=== PATIENT | male | born 1965 | race Caucasian/White ===

== ENCOUNTER 2017-01-21 03:59 | Emergency (ER) | payer OTHER ==
[~2017-01-21] VITALS: Ht 180.3 cm; Wt 81.6 kg
[~2017-01-21 03:59] MED LIST: POLYTRIM O200 GTT/BO OT; VIAGRA25 M1 PO
--- NOTE | 2017-01-21 04:58 | ED NECK/BACK PAIN COMPLAINT ---
History of Present Illness General Chief Complaint: General Adult Stated Complaint: PAIN IN BUTTOCK Source: patient, old records Exam Limitations: no limitations Vital Signs & Intake/Output Vital Signs & Intake/Output Vital Signs Date Time Temp Pulse Resp B/P B/P Pulse O2 O2 Flow FiO2 Mean Ox Delivery Rate 01/21 0550 96.0 58 16 142/84 97 Room Air 01/21 0417 97.0 72 16 163/93 99 Room Air Room Air Allergies Coded Allergies: MDX - PCN (penicillin) (PCN (PENICILLIN)) (RASH 02/25/14) Reconcile Medications Atenolol 25 MG TABLET 1 TAB PO DAILY HTN (Reported) Baclofen 10 MG TABLET 1-2 TAB PO TID PRN muscle strain Ibuprofen 800 MG TABLET 1 TAB PO Q6PRN PRN pain Polytrim (Polytrim Eye Drops) 200 GTT/BOT GTT 1 DROP OT 4 TIMES/DAY EYE TRAUMA Sildenafil Citrate (Viagra) 25 MG TAB 1 TAB PO AD IMPOTENCE (Reported) 1 hour before sexual activity Tramadol HCl (Ultram) 50 MG TABLET 1-2 TAB PO Q6PRN PRN severe pain Triage Note: 51yo MALE TO RM 1 FROM TRIAGE W/CO L BUTTOCK PAIN X 1 MONTH. DENIES ANY INJURY, TRAUMA OR FALL. Triage Nurses Notes Reviewed? yes Onset: 1 month Duration: week(s):, changing over time, continues in ED Timing: recent history Quality/Severity: moderate, dullness Location: L buttocks Radiation: upper legs, lower legs Context: prolonged sitting Method of Injury: unknown Loss of Consciousness: no loss of consciousness Modifying Factors: other (sitting) Associated Symptoms: lower back pain HPI: 1 month prior to admission patient complains of left buttocks pain described as sharp radiating upper and lower leg intermittent mild to moderate severity occurring especially after prolonged car ride riding quad or lawnmower. He denies fever chills nausea vomiting diarrhea abdominal pain chest pain shortness breath headache dysuria rash bleeding change in motor sensory function change in bowel bladder habit. Past History Travel History Traveled to [place] past 21 day No Medical History Any Pertinent Medical History? see below for history Neurological: migraine Cardiovascular: hypertension Psychiatric: depression Surgical History Surgical History: non-contributory Psychosocial History What is your primary language Guinean Tobacco Use: Never used Family History Hx Contributory? No Review of Systems Review of Systems Constitutional: Reports: no symptoms. Eyes: Reports: no symptoms. Ears, Nose, Throat, Mouth: Reports: no symptoms. Respiratory: Reports: no symptoms. Cardiovascular: Reports: no symptoms. Gastrointestinal/Abdominal: Reports: no symptoms. Musculoskeletal: Reports: see HPI, joint pain, muscle pain. Skin: Reports: no symptoms. Neurological/Psychological: Reports: no symptoms. All Other Systems: Reviewed and Negative Physical Exam Physical Exam General Appearance: well developed/nourished, alert, awake, anxious, mild distress, thin Head: atraumatic, normal appearance Eyes: Bilateral: PERRL, EOMI. Ears, Nose, Throat, Mouth: hearing grossly normal Neck: normal inspection, supple, full range of motion, normal alignment Respiratory: normal breath sounds, chest non-tender, no respiratory distress, quiet respiration, lungs clear Cardiovascular: regular rate/rhythm, normal peripheral pulses, norml femoral pulses equa Peripheral Pulses: 4+ carotid (R), 4+ carotid (L) Gastrointestinal: normal bowel sounds, soft, non-tender, no organomegaly Back: normal inspection, normal range of motion, no vertebral tenderness Extremities: normal range of motion, deep tenderness left medial buttock Straight Leg Raising: Right: Negative. Left: Negative. Sensory: Medial Le: L4R, L4L. Top of Foot: 2: L5R, L5L. Sole of Foot: 2: SIR, KINGSLEY. Motor: Deficit L4 Right: No Deficit L4 Left: No Deficit L5 Right: No Deficit L5 Left: No Deficit S1 Right: No Deficit S1 Right: No DTR: Deficit L4 Left: No Deficit L4 Right: No Deficit S1 Left: No Deficit S1 Right: No Patellar: 3: L4 Right, L4 Left. Achilles: 3: S1 Right, S1 Left. 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 Discussed w/RAD: Radiology Read. Radiology Impression: no acute abnormality, no fracture, no dislocation Departure Departure Time of Disposition: 515 Disposition: HOME OR SELF CARE Condition: Stable Clinical Impression Primary Impression: Piriformis syndrome of left side Referrals: BALAJI GREER,GLO Fitch (PCP/Family) Departure Forms: Customer Survey General Discharge Information Prescriptions: Current Visit Scripts Ibuprofen 1 TAB PO Q6PRN PRN pain #50 TAB Baclofen 1-2 TAB PO TID PRN muscle strain #30 TAB Tramadol HCl (Ultram) 1-2 TAB PO Q6PRN PRN severe pain #30 TAB
[2017-01-21] MEDS ORDERED: ATENOLOL25 M1 PO (05:09)
[2017-01-21] MEDS ORDERED: IBUPROFEN800 M1 PO (05:42)
[2017-01-21] MEDS ORDERED: BACLOFEN10 M1 PO (05:42)
[2017-01-21] MEDS ORDERED: ULTRAM50 M1 PO (05:42)
[2017-01-21 05:50] VITALS: BP 142/84
--- NOTE | 2017-01-21 06:07 | RADIOLOGY REPORT ---
EXAMINATION: RADIOGRAPH OF THE PELVIS AND LEFT HIP. CLINICAL INFORMATION: Left buttock pain. COMPARISON: No relevant prior imaging. TECHNIQUE: An AP view of pelvis was obtained. 2 additional views of the left hip were obtained. FINDINGS: The pelvic ring is intact. Sacroiliac joints are symmetric. There is no acute fracture. Both hips are intact and joint spaces are maintained. There is no dislocation. Visualized bowel gas pattern is unremarkable. Soft tissues are normal. IMPRESSION: Normal radiographs of the pelvis and left hip.
== END 2017-01-21 06:42 ==
LOC: ERH 03:59
DX: G57.02 Lesion of sciatic nerve, left lower limb (principal)

== ENCOUNTER 2018-01-30 15:27 | Emergency (ER) | payer OTHER ==
[~2018-01-30] VITALS: Ht 180.3 cm; Wt 81.6 kg
[~2018-01-30 15:27] MED LIST changes: +AMLODIPINE BESYL5 M1 PO; +ATENOLOL25 M1 PO; +BACLOFEN10 M1 PO; +EPIPEN 2-P0.3 MG/0.3 IM; +IBUPROFEN800 M1 PO; +ULTRAM50 M1 PO
--- NOTE | 2018-01-30 15:41 | ED CARDIAC/CP/PALPITATIONS ---
History of Present Illness General Chief Complaint: Chest Pain Stated Complaint: CHEST PAIN Source: patient, old records Exam Limitations: no limitations Vital Signs & Intake/Output Vital Signs & Intake/Output Vital Signs Date Time Temp Pulse Resp B/P B/P Pulse O2 O2 Flow FiO2 Mean Ox Delivery Rate 01/31 2020 98.4 88 18 150/86 97 Room Air Room Air 01/30 1909 98.2 91 18 151/88 97 Room Air Room Air 01/30 1730 98.1 95 18 156/90 96 Room Air 01/30 1600 96 166/88 01/30 1534 98.4 99 20 200/100 100 Room Air Allergies Coded Allergies: bee venom protein (honey bee) (Severe, SWELLING AT SITE OF STING 07/17/17) Penicillins (RASH 07/17/17) Reconcile Medications Amlodipine Besylate 5 MG TABLET 1 TAB PO DAILY BP (Reported) Epinephrine (Epipen 2-Jayce) 0.3 MG/0.3 ML AUTO.INJCT 1 INJ IM X1 PRN SEVERE ALLERGIC REACTION Triage Note: PT TO ED C/O SUBSTERNAL ON AND OFF CHEST PAIN X 3 DAYS. PAIN DOES NOT RADIATE. DENIES N/V/D. "I FEEL MY HEARTBEAT IN MY NECK". BP 200/100 IN TRIAGE. "I JUST DON'T FEEL RIGHT". Triage Nurses Notes Reviewed? yes Onset: Abrupt Duration: week(s): (3), intermittent Timing: recent history Quality/Severity: moderate (pressure) Location: central Radiation: neck Activities at Onset: emotional stress Prior Chest Pain/Card Workup: similar sx 1 yr ago- had neg cardio workup Nitro Today/Relief: no nitro taken today Aspirin Today: no aspirin today Associated Symptoms: denies HPI: 52-year-old male history of hypertension on amlodipine nonsmoker presents to the ER complaining of 3 day history of intermittent chest pain radiating into his neck. Patient states she's been under significant stress recently secondary to his mother being ill area describes the pain as a pressure sensation. No back or arm pain last episode of pain was around 9:30 this morning and last for a few minutes and resolves on its own. He took ibuprofen without any relief however. He also reports palpitations. No shortness of breath pain with inspiration nausea vomiting diaphoresis. Family history significant in that his brother had a heart attack at the age of 50. 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 No recent change in his amlodipine dose he denies any complaints at this time. (Eugene Angulo) Past History Travel History Traveled to [place] past 21 day No Medical History Any Pertinent Medical History? see below for history Neurological: migraine Cardiovascular: hypertension Psychiatric: depression Surgical History Surgical History: non-contributory Psychosocial History What is your primary language Mongolian Tobacco Use: Never used ETOH Use: heavy use Illicit Drug Use: denies illicit drug use Family History Hx Contributory? No (Eugene Angulo) Review of Systems Review of Systems Constitutional: Reports: see HPI. Comments Review of systems: See HPI, All other systems negative. Constitutional, no chills no fever, HEENT: no sore throat no congestion Cardiovascular: chest pain Skin: no rashes, no change in skin Respiratory: No dyspnea no cough no sputum GI: No nausea no vomiting, no diarrhea, no bloating/constipation Muscle skeletal: No joint pain, no back pain, no neck pain, Neurologic: , no headache Psych: stress Heme/endocrine: No bruising Immunology: No lymphadenopathy (Eugene Angulo) Physical Exam Physical Exam General Appearance: well developed/nourished, alert, awake Cardiovascular: regular rate/rhythm Comments: Well-developed well-nourished person in no acute distress HEENT: Normal EENT exam; PERRL, EOMI, HEAD is atraumatic. moist mucous membranes. Neck: Supple, normal range of motion Back: Full range of motion Cardiovascular: Regular rate and rhythms no murmurs rubs Respiratory: Chest nontender.There were no bony deformities, no asymmetry. No respiratory distress. Patient speaking in full complete sentences. Breath sounds clear to auscultation bilaterally: NO W/R/R Abdomen: Soft, nontender Extremity: No edema, full range of motion of extremities, Neuro: Alert oriented x3, motor sensory normal. There were no obvious focal neurologic abnormalities. Skin: No appreciable rash on exposed skin, skin is warm and dry. Psych: Mood and affect is normal, memory and judgment is normal. Core Measures ACS in differential dx? Yes CVA/TIA Diagnosis No Sepsis Present: No Sepsis Focused Exam Completed? No (Eugene Angulo) Progress Differential Diagnosis: AMI, aortic dissection, atrial fibrillation, musculoskeletal pain, pericarditis, pneumonia, pulmonary embolism, unstable angina Plan of Care: Orders Procedure Date/time Status TROPONIN LEVEL 01/30 1900 Complete EKG 01/30 1900 Active Add-on Test (ER Only) 01/30 1617 Active D-DIMER 01/30 1608 Complete Telemetry/Chimney Builder Helper 01/30 1556 Active TROPONIN LEVEL 01/30 1547 Complete PROTHROMBIN TIME 01/30 1547 Complete COMPREHENSIVE METABOLIC PANEL 01/30 1547 Complete CBC WITHOUT DIFFERENTIAL 01/30 1547 Complete EKG 01/30 1528 Active Laboratory Tests 01/30/18 1904: Troponin I < 0.01 01/30/18 1608: Anion Gap 12, Estimated GFR > 60, BUN/Creatinine Ratio 17.1, Glucose 131 H, Calcium 9.8, Total Bilirubin 0.7, AST 26, ALT 33, Alkaline Phosphatase 77, Troponin I < 0.01, Total Protein 7.1, Albumin 4.8, Globulin 2.3, Albumin/ Globulin Ratio 2.1, PT 12.0, INR 1.10, D-Dimer High Sensitivty < 200, CBC w Diff NO MAN DIFF REQ, RBC 4.76, MCV 93.9, MCH 31.4 H, MCHC 33.4, RDW 13.8, MPV 9.7, Gran % 76.3 H, Lymphocytes % 17.6 L, Monocytes % 5.3, Eosinophils % 0.5, Basophils % 0.3, Absolute Granulocytes 4.2, Absolute Lymphocytes 1.0 L, Absolute Monocytes 0.3, Absolute Eosinophils 0, Absolute Basophils 0 Patient denies any complaints at this time labs old records reviewed x-ray ordered. Case discussed with Dr. Pugh agrees with plan I discussed with the patient need for repeat troponin he remains asymptomatic at this time 1800 pt continues to rest in nad, denies pain 0 labs and ekg sent. 01/30/2018 8:16:51 PM discussed with the patient is repeat labs case discussed with Dr. Reynoso agrees with plan. Patient resting in no acute distress I discussed with him need for close follow up with his mill tender second operator tomorrow, return precautions were discussed at length I discussed with him need to continue following up with his primary care and cardiology regarding his elevated blood pressures. Return precautions discussed at length and feel comfortable plan-I answered all of their questions Diagnostic Imaging: Viewed by Me: Radiology Read. Discussed w/RAD: Radiology Read. Radiology Impression: PATIENT: ATUL SAWYER PRESENT AGE: 52 PATIENT ACCOUNT NO: [id number] : 63 LOCATION: [facility] ORDERING PHYSICIAN: Eugene CAMP SERVICE DATE: 01/30/18 EXAM TYPE: RAD - XRY- PORTABLE CHEST XRAY EXAMINATION: XR PORTABLE CHEST CLINICAL INFORMATION: Chest pain. COMPARISON: Chest radiograph 02/25/2014. TECHNIQUE: Portable frontal view of the chest was obtained. FINDINGS: Lungs are clear and well expanded. No focal consolidative disease, pleural effusion, or pneumothorax. The cardiac silhouette and upper mediastinal contours are normal. No acute osseous finding. IMPRESSION: Unremarkable chest radiograph. No consolidative disease or effusion. DICTATED BY : Pato Grove MD DATE/TIME DICTATED:01/30/181725 BASKET MACHINE OPERATOR: EVERARDO DATE/TIME TRANSCRIBED:01/30/181725 CONFIDENTIAL, DO NOT COPY WITHOUT APPROPRIATE AUTHORIZATION. <Electronically signed in Other Vendor System> SIGNED BY: Pato Grove MD 01/30/181732 Initial ED EKG: normal sinus rhythm, RBBB Prior EKG: changed Repeat EKG: unchanged Rhythm Strip: normal sinus rhythm (Eugene Angulo) Departure Departure Time of Disposition: 2013 Disposition: HOME OR SELF CARE Condition: Stable Clinical Impression Primary Impression: Chest pain Referrals: Olga Hu (PCP/Family) Additional Instructions: Follow-up with your mill tender second operator Dr. Zhang tomorrow. As discussed purchase a home blood pressure cuff and check her pressures as discussed if they remain elevated or you have continued symptoms return to the ER. Return anytime sooner with any concerns. Departure Forms: Customer Survey General Discharge Information (Eugene Angulo) PA/SOLUTIONS CONSULTANT Co-Sign Statement Statement: ED Attending supervision documentation- [X] I saw and evaluated the patient. I have also reviewed all the pertinent lab results and diagnostic results. I agree with the findings and the plan of care as documented in the PA's/SOLUTIONS CONSULTANT's documentation. [X]X I have reviewed the ED Record and agree with the PA's/SOLUTIONS CONSULTANT's documentation. [] Additions or exceptions (if any) to the PAs/SOLUTIONS CONSULTANT's note and plan are summarized below: [] (Angeles GREER,Yusuf.) Critical Care Note Critical Care Note Critical Care Time: non-applicable (Eugene Angulo)
[2018-01-30 16:19] LABS: ABSOLUTE BASOPHIL COUNT 0 /CUMM (0.0-0.2); ABSOLUTE EOSINOPHIL COUNT 0 /CUMM (0.0-0.7); ABSOLUTE GRANULOCYTE CT 4.2 /CUMM (1.4-6.5); ABSOLUTE MONOCYTE COUNT 0.3 /CUMM (0.10-0.60); BASOPHIL % 0.3 % (0.0-2.0); EOSINOPHIL % 0.5 % (0-5); GRANULOCYTE % 76.3 % (42.2-75.2); HEMATOCRIT 44.7 % (42-52); MEAN CORPUSCULAR HGB 31.4 PG (27.0-31.0); MEAN CORPUSCULAR HGB CONC 33.4 G/DL (33.0-37.0); MEAN CORPUSCULAR VOLUME 93.9 FL (80.0-94.0); MEAN PLATELET VOLUME 9.7 FL (7.4-10.4); PLATELET COUNT 134 /CUMM (130-400); RBC DISTRIBUTION WIDTH 13.8 % (11.5-14.5); RED BLOOD CELL CT 4.76 /CUMM (4.70-6.10); WHITE BLOOD CELL COUNT 5.5 /CUMM (4.8-10.8)
--- NOTE | 2018-01-30 17:33 | RADIOLOGY REPORT ---
EXAMINATION: XR PORTABLE CHEST CLINICAL INFORMATION: Chest pain. COMPARISON: Chest radiograph 02/25/2014. TECHNIQUE: Portable frontal view of the chest was obtained. FINDINGS: Lungs are clear and well expanded. No focal consolidative disease, pleural effusion, or pneumothorax. The cardiac silhouette and upper mediastinal contours are normal. No acute osseous finding. IMPRESSION: Unremarkable chest radiograph. No consolidative disease or effusion.
[2018-01-30 20:20] VITALS: BP 150/86
== END 2018-01-30 20:21 ==
LOC: ERH 15:27
PROVIDERS: Physician Assistant Medical
DX: R07.89 Other chest pain (principal)
CPT/HCPCS: 71045; 93005; 93010

== ENCOUNTER 2018-04-05 08:42 | Emergency (ER) | payer OTHER ==
[2018-04-05 09:47] LABS: ABSOLUTE BASOPHIL COUNT 0 /CUMM (0.0-0.2); ABSOLUTE EOSINOPHIL COUNT 0 /CUMM (0.0-0.7); ABSOLUTE GRANULOCYTE CT 2.2 /CUMM (1.4-6.5); ABSOLUTE LYMPH COUNT 1.1 /CUMM (1.2-3.4); ABSOLUTE MONOCYTE COUNT 0.3 /CUMM (0.10-0.60); BASOPHIL % 0.3 % (0.0-2.0); EOSINOPHIL % 0.9 % (0-5); GRANULOCYTE % 60.2 % (42.2-75.2); HEMATOCRIT 46.3 % (42-52); MEAN CORPUSCULAR HGB 31.4 PG (27.0-31.0); MEAN CORPUSCULAR HGB CONC 33.5 G/DL (33.0-37.0); MEAN CORPUSCULAR VOLUME 93.8 FL (80.0-94.0); MEAN PLATELET VOLUME 9.5 FL (7.4-10.4); PLATELET COUNT 139 /CUMM (130-400); RBC DISTRIBUTION WIDTH 13.5 % (11.5-14.5); RED BLOOD CELL CT 4.94 /CUMM (4.70-6.10); WHITE BLOOD CELL COUNT 3.7 /CUMM (4.8-10.8)
--- NOTE | 2018-04-05 10:24 | ED GI/GU/ABDOMINAL COMPLAINT ---
History of Present Illness General Chief Complaint: Low Back Pain/Injury Stated Complaint: LOWER BACK PAIN X1 WEEK Source: patient Exam Limitations: no limitations Vital Signs & Intake/Output Vital Signs & Intake/Output Vital Signs Date Time Temp Pulse Resp B/P B/P Pulse O2 O2 Flow FiO2 Mean Ox Delivery Rate 04/05 1300 97.6 89 18 145/88 97 Room Air Room Air 04/05 0851 97.0 98 20 147/96 96 Allergies Coded Allergies: bee venom protein (honey bee) (Severe, SWELLING AT SITE OF STING 07/17/17) Penicillins (RASH 07/17/17) Reconcile Medications Amlodipine Besylate 5 MG TABLET 1 TAB PO DAILY BP (Reported) Epinephrine (Epipen 2-Jayce) 0.3 MG/0.3 ML AUTO.INJCT 1 INJ IM X1 PRN SEVERE ALLERGIC REACTION Ibuprofen 800 MG TABLET 1 TAB PO TID PRN pain Triage Note: PER PT BACK PAIN LOWER LEFT X 1 WEEK SAW PMD YESTERDAY TOLD TO COME TO ED IF WORSE. OCCAS WHOLE LOWER ABD HURTS D/T BACK PAIN PER PT DENIES URINARY CO PAIN 05/12 UNKNOWN INJURY Triage Nurses Notes Reviewed? yes Onset: Gradual Duration: week(s): (1), constant, continues in ED Timing: single episode today Quality/Severity: fullness, moderate, sharpness Severity Numbers: 8 Location: left flank, left lower quadrant, LOWER BACK Radiation: no radiation Activities at Onset: none Prior Abdominal Problems: none Past Sexual History: Unobtainable at this time No Modifying Factors: none Modifying Factors: Worsens With: movement, palpation. Associated Symptoms: abdominal pain, lower back pain HPI: 52 YEAR OLD MALE HX OF HTN DEPRESSION, PRESENTS FOR EVAL OF LOWER BACK AND PAIN ABDOMINAL PAIN. PAIN STARTED ABOUT 1 WEEK AGO AND HAS BEEN PERSISTENT. IT IS ASSOICATED WITH LOWER ABDOMINAL PAIN IN THE LLQ AND SUPRAPUBIC AREA. THE ABDOMINAL PAIN IS INTERMITTENT. THE PAIN IS WORSE WITH MOVEMENT OR PALPATION. NO TRAUMA OR TRIGGERING EVENT. REPROTS SOME NAUSEA AND DECREASED APPETITIE. NO VOMITING OR DIARRHEA. NO NUMBNESS, FEVER, BOWL/BLADDER DYSFUNCTION. HE HAS BEEN TAKING TYLENOL WITHOUT IMPROVEMENT. (Haris Adames) Past History Travel History Traveled to [place] past 21 day No Medical History Any Pertinent Medical History? see below for history Neurological: migraine EENT: NONE Cardiovascular: hypertension Respiratory: NONE Gastrointestinal: NONE Hepatic: NONE Renal: NONE Musculoskeletal: NONE Psychiatric: depression Endocrine: NONE Surgical History Surgical History: non-contributory Psychosocial History What is your primary language Sierra Leonean Tobacco Use: Never used Family History Hx Contributory? No (Haris Adames) Review of Systems Review of Systems Constitutional: Reports: no symptoms. EENTM: Reports: no symptoms. Respiratory: Reports: no symptoms. Cardiovascular: Reports: no symptoms. GI: Reports: see HPI, abdominal pain, nausea. Genitourinary: Reports: no symptoms. Musculoskeletal: Reports: see HPI, back pain. Skin: Reports: no symptoms. Neurological/Psychological: Reports: no symptoms. Hematologic/Endocrine: Reports: no symptoms. Immunologic/Allergic: Reports: no symptoms. All Other Systems: Reviewed and Negative (Haris Adames) Physical Exam Physical Exam General Appearance: well developed/nourished, no apparent distress, alert, awake Head: atraumatic, normal appearance Eyes: Bilateral: normal appearance, EOMI. Ears, Nose, Throat, Mouth: hearing grossly normal, moist mucous membrane Neck: normal inspection, supple, full range of motion Respiratory: normal breath sounds, chest non-tender, no respiratory distress, lungs clear Cardiovascular: regular rate/rhythm, normal peripheral pulses Peripheral Pulses: 2+ radial (R), 2+ radial (L) Gastrointestinal: normal bowel sounds, soft, no organomegaly, tenderness (llq, left flank, suprapubic ) Back: normal inspection, normal range of motion, left lower back pain Extremities: normal range of motion Neurologic/Psych: no motor/sensory deficits, awake, alert, oriented x 3, normal gait Skin: intact, normal color, warm/dry Core Measures ACS in differential dx? No Sepsis Present: No Sepsis Focused Exam Completed? No (Haris Adames) Progress Differential Diagnosis: AAA, biliary colic, bowel obstruction, cholecystitis, diverticulitis, gastritis, ischemic bowel, inflamm bowel dis, pancreatitis, prostatitis, peptic ulcer, PUD/GERD, SBO, STD, testicular torsion, ureterolithiasis, urinary retention, urethritis, UTI/pyelo Plan of Care: Orders Procedure Date/time Status URINALYSIS 04/05 922 Complete LIPASE 04/05 922 Complete COMPREHENSIVE METABOLIC PANEL 04/05 922 Complete CBC WITHOUT DIFFERENTIAL 04/05 922 Complete Laboratory Tests 04/05/18 0956: Urine Color YEL, Urine Clarity CLEAR, Urine pH 8.0, Ur Specific [place] 1.015, Urine Protein NEG, Urine Ketones NEG, Urine Nitrite NEG, Urine Bilirubin NEG, Urine Urobilinogen 1.0, Ur Leukocyte Esterase NEG, Ur Microscopic EXAM NOT REQUIRED, Urine Hemoglobin NEG, Urine Glucose NEG 04/05/18 0930: Anion Gap 10, Estimated GFR > 60, BUN/Creatinine Ratio 14.3, Glucose 97, Calcium 9.7, Total Bilirubin 1.1, AST 21, ALT 27, Alkaline Phosphatase 60, Total Protein 6.6, Albumin 4.4, Globulin 2.2, Albumin/Globulin Ratio 2.0, Lipase 56, CBC w Diff MAN DIFF ORDERED, RBC 4.94, MCV 93.8, MCH 31.4 H, MCHC 33.5, RDW 13.5, MPV 9.5, Gran % 60.2, Lymphocytes % 30.6, Monocytes % 8.0, Eosinophils % 0.9, Basophils % 0.3, Absolute Granulocytes 2.2, Absolute Lymphocytes 1.1 L, Absolute Monocytes 0.3, Absolute Eosinophils 0, Absolute Basophils 0, Platelet Estimate VERIFIED BY SMEAR, Normocytic RBCs VERIFIED, Normochromic RBCs VERIFIED Patient is here with lower abdominal pain and lower back pain. Symptoms have been going on for about a week now. The pain is located mostly in the suprapubic left lower quadrant left flank and left back. The pain is worse with movement. They're associated nausea. No numbness or tingling urinary symptoms bowel or bladder dysfunction. Labs ordered patient medicated with Toradol. CT scan shows nonobstructing renal stones as well as a left-sided inguinal hernia. No signs of obstruction or incarceration or strangulation. Reviewed results with patient. He is feeling better. Advised him to follow-up with Gen. surgery. Reviewed all results of today's visit with patient. Continue Tylenol or Profen as needed. Discussed return precautions patient agrees Diagnostic Imaging: Viewed by Me: CT Scan. Discussed w/RAD: CT Scan. Radiology Impression: PATIENT: ATUL SAWYER PRESENT AGE: 52 PATIENT ACCOUNT NO: [id number] : 63 LOCATION: [facility] ORDERING PHYSICIAN: Haris CMAP SERVICE DATE: 04/05/18 EXAM TYPE: CAT - CT ABD & PELVIS W/O IV CONTRAS EXAMINATION: CT ABDOMEN AND PELVIS WITHOUT CONTRAST CLINICAL INFORMATION: Left lower quadrant, left back and suprapubic pain for a week. COMPARISON: Prior chest radiograph. TECHNIQUE: Multidetector volumetric imaging was performed from the superior aspect of the liver through the pubic symphysis. Sagittal and coronal reformatted images were obtained on the technologist's workstation. DLP: 278.02 mGy-cm. FINDINGS: LUNG BASES: The visualized lung bases are unremarkable. LIVER, GALLBLADDER, AND BILIARY TREE: A 2 cm fluid attenuation cyst in the dome of the right lobe. Indeterminate subcentimeter hypodensity in the caudal aspect of segment 3 (series 2 image ). The gallbladder is unremarkable with no evidence of radiopaque gallstones, gallbladder wall thickening, or obvious pericholecystic inflammatory changes. PANCREAS: Unremarkable. SPLEEN: Unremarkable. ADRENAL GLANDS: Unremarkable. KIDNEYS AND URETERS: There is a 2 mm nonobstructing right upper pole renal calculus. Kidneys are otherwise normal in appearance without hydronephrosis or perinephric collection. No hydroureter. BLADDER: Minor bladder wall thickening is likely due to decompression. GASTROINTESTINAL TRACT: The visualized esophagus and stomach are normal in appearance. Small bowel loops are normal in caliber. Some high attenuation material within mid small bowel loop is presumably ingested. Normal terminal ileum. Normal appendix. No evidence of acute colitis. No large bowel obstruction. Redundant transverse colon with no evidence of volvulus. No free air. No free peritoneal fluid. ABDOMINAL WALL: Tiny fat- containing left inguinal hernia with no bowel involvement. LYMPH NODES: Normal. VASCULAR: Normal caliber abdominal aorta with minimal atherosclerotic disease. No caval or branch vessel abnormality identified. No retroperitoneal collection. PELVIC VISCERA: Prostate top-normal size. Symmetric seminal vesicles. No pelvic free fluid or lymphadenopathy. No clear etiology for left lower quadrant and suprapubic pain. Coarse calcifications in the right inguinal canal, likely phleboliths or postinfectious. OSSEOUS STRUCTURES: Minor lumbar spondylosis. No acute compression deformity or malalignment. No acute osseous abnormality. IMPRESSION: No clear etiology for acute left lower quadrant and suprapubic pain. Tiny nonobstructing right renal calculus. Top-normal size prostate. Tiny fat- containing left inguinal hernia without bowel involvement. Incidental hepatic cysts. DICTATED BY: Walker Persaud MD DATE/TIME DICTATED:04/05/18941 MED SURG NURSE:EVERARDO DATE/TIME TRANSCRIBED:04/05/18941 CONFIDENTIAL, DO NOT COPY WITHOUT APPROPRIATE AUTHORIZATION. <Electronically signed in Other Vendor System> SIGNED BY: Walker Persaud MD 04/05/18 1111 Initial ED EKG: none (Haris Adames) Departure Departure Disposition: HOME OR SELF CARE Condition: Stable Clinical Impression Primary Impression: Inguinal hernia Qualifiers: Obstruction and gangrene presence: without obstruction or gangrene Laterality: unilateral Recurrence: non-recurrent Qualified Code: K40.90 - Unilateral inguinal hernia, without obstruction or gangrene, not specified as recurrent Referrals: Olga Hu (PCP/Family) Chacho GREER,Musa Luque Additional Instructions: Rest, avoid heavy lifting bending or excessive physical activity. Ibuprofen 800 mg every 8 hours with food as needed for pain. He can also use your tramadol 6 hours as needed for pain this may cause drowsiness. Follow-up with your primary care doctor and provided general surgeon Dr. Flor. Monitor symptoms and return with any concerns. Departure Forms: Customer Survey General Discharge Information Prescriptions: Current Visit Scripts Ibuprofen 1 TAB PO TID PRN pain #30 TAB (Haris Adames) PA/LAB ASST Co-Sign Statement Statement: ED Attending supervision documentation- [] I saw and evaluated the patient. I have also reviewed all the pertinent lab results and diagnostic results. I agree with the findings and the plan of care as documented in the PA's/LAB ASST's documentation. [X] I have reviewed the ED Record and agree with the PA's/LAB ASST's documentation. [] Additions or exceptions (if any) to the PAs/LAB ASST's note and plan are summarized below: [] (Angeles GREER,Chema Beverly)
--- NOTE | 2018-04-05 11:11 | CT SCAN REPORT ---
EXAMINATION: CT ABDOMEN AND PELVIS WITHOUT CONTRAST CLINICAL INFORMATION: Left lower quadrant, left back and suprapubic pain for a week. COMPARISON: Prior chest radiograph. TECHNIQUE: Multidetector volumetric imaging was performed from the superior aspect of the liver through the pubic symphysis. Sagittal and coronal reformatted images were obtained on the technologist's workstation. DLP: 278.02 mGy-cm. FINDINGS: LUNG BASES: The visualized lung bases are unremarkable. LIVER, GALLBLADDER, AND BILIARY TREE: A 2 cm fluid attenuation cyst in the dome of the right lobe. Indeterminate subcentimeter hypodensity in the caudal aspect of segment 3 (series 2 image ). The gallbladder is unremarkable with no evidence of radiopaque gallstones, gallbladder wall thickening, or obvious pericholecystic inflammatory changes. PANCREAS: Unremarkable. SPLEEN: Unremarkable. ADRENAL GLANDS: Unremarkable. KIDNEYS AND URETERS: There is a 2 mm nonobstructing right upper pole renal calculus. Kidneys are otherwise normal in appearance without hydronephrosis or perinephric collection. No hydroureter. BLADDER: Minor bladder wall thickening is likely due to decompression. GASTROINTESTINAL TRACT: The visualized esophagus and stomach are normal in appearance. Small bowel loops are normal in caliber. Some high attenuation material within mid small bowel loop is presumably ingested. Normal terminal ileum. Normal appendix. No evidence of acute colitis. No large bowel obstruction. Redundant transverse colon with no evidence of volvulus. No free air. No free peritoneal fluid. ABDOMINAL WALL: Tiny fat-containing left inguinal hernia with no bowel involvement. LYMPH NODES: Normal. VASCULAR: Normal caliber abdominal aorta with minimal atherosclerotic disease. No caval or branch vessel abnormality identified. No retroperitoneal collection. PELVIC VISCERA: Prostate top-normal size. Symmetric seminal vesicles. No pelvic free fluid or lymphadenopathy. No clear etiology for left lower quadrant and suprapubic pain. Coarse calcifications in the right inguinal canal, likely phleboliths or postinfectious. OSSEOUS STRUCTURES: Minor lumbar spondylosis. No acute compression deformity or malalignment. No acute osseous abnormality. IMPRESSION: No clear etiology for acute left lower quadrant and suprapubic pain. Tiny nonobstructing right renal calculus. Top-normal size prostate. Tiny fat-containing left inguinal hernia without bowel involvement. Incidental hepatic cysts.
[2018-04-05] MEDS ORDERED: IBUPROFEN800 M1 PO (11:21)
[2018-04-05 13:00] VITALS: BP 145/88
== END 2018-04-05 14:33 ==
LOC: ERH 08:42
PROVIDERS: Physician Assistant Medical
DX: K40.90 Unilateral inguinal hernia, without obstruction or gangrene, not specified as recurrent (principal)
CPT/HCPCS: 74176; 81003; 96372; J1885